=== PATIENT | male | born 1960 | race Caucasian/White ===

== ENCOUNTER 2021-11-14 22:35 | Emergency (ER) | payer OTHER ==
[2021-11-14 23:03] VITALS: BP 115/65; PULSE 95; RESP 18; TEMP 98.2; BMI 17.0
[2021-11-15 01:13] LABS: BASO % 0.5 % (0-2.0); EOS % 2.4 % (0-4.5); HEMATOCRIT 29.4 % (35.4-49); HEMOGLOBIN 9.7 GM/dL (11.7-16.9); LYMPH % 25.3 % (8-40); MCHC 33.2 g/dl (32.0-35.9); MEAN CELL VOLUME 90.5 fl (80-96); MEAN PLT VOLUME 7.9 fl (7.5-11.1); NEUT % 63.8 % (42.8-82.8); PLATELET COUNT 359 10^3/uL (134-434); RBC 3.25 M/mm3 (4.00-5.60); RDW 14.7 % (11.9-15.9); WHITE BLOOD COUNT 8.1 K/mm3 (4.0-10.0)
[2021-11-15 01:19] LABS: EPI CELLS 14 /uL (0-25.1); HYALINE CASTS 1 /uL (0-3.1); URINE APPEARANCE CLEAR; URINE BACTERIA 1 /uL (0-1359); URINE BILIRUBIN NEGATIVE (NEGATIVE); URINE COLOR RED; URINE GLUCOSE (UA) NEGATIVE (NEGATIVE); URINE KETONE NEGATIVE (NEGATIVE); URINE LEUK ESTERASE 2+ (NEGATIVE); URINE NITRITE NEGATIVE (NEGATIVE); URINE PROTEIN 2+ (NEGATIVE); URINE WBC 102 /uL (0-25.8)
[2021-11-15 01:25] LABS: INR 0.96 (0.83-1.09)
[2021-11-15 01:28] LABS: ACTIVATED PTT 29.3 SECONDS (25.2-36.5)
[2021-11-15 01:34] LABS: BLOOD UREA NITROGEN 10.9 mg/dL (7-18); CALCIUM 8.7 mg/dL (8.5-10.1)
[2021-11-15 01:35] LABS: ALBUMIN 2.8 g/dl (3.4-5.0)
[2021-11-15 01:39] LABS: BILIRUBIN,TOTAL 0.1 mg/dL (0.2-1); TOT PROT 6.3 g/dl (6.4-8.2)
[2021-11-15 03:25] LABS: URINE RBC 956.1 /uL (0-23.9)
== END 2021-11-15 02:39 | disposition home or self-care (01) ==
LOC: JER 22:35
DX: N36.8 Other specified disorders of urethra (principal)
CPT/HCPCS: 36415; 80053; 81003; 85025; 85610; 85730; 86850; 86900; 86901; 87086; 99283-25

== ENCOUNTER 2023-02-28 04:52 | Day surgery (SDC) | payer OTHER ==
[2023-02-27 09:58] VITALS: BMI 18.1
[2023-02-28 12:06] VITALS: TEMP 97.7
[2023-02-28 12:33] VITALS: BP 109/67; PULSE 72; RESP 18
== END 2023-02-28 12:35 | disposition home or self-care (01) ==
LOC: JASU-ENDO 04:52
PROVIDERS: ATTEND Internal Medicine Gastroenterology
PROC: 0DBH8ZX Excision of Cecum, Via Natural or Artificial Opening Endoscopic, Diagnostic (ICD-10-PCS; 2023-02-28)
PROC: 0DBN8ZX Excision of Sigmoid Colon, Via Natural or Artificial Opening Endoscopic, Diagnostic (ICD-10-PCS; principal; 2023-02-28 10:45)
DX: Z12.11 Encounter for screening for malignant neoplasm of colon (principal); D12.0 Benign neoplasm of cecum; K63.5 Polyp of colon; K64.8 Other hemorrhoids
CPT/HCPCS: 88305-TC; 88342-TC